=== PATIENT | male | born 1980 | race Caucasian/White ===

== ENCOUNTER 2016-10-18 14:22 | Emergency (ER) | payer SELFPAY ==
[~2016-10-18] VITALS: Ht 175.3 cm; Wt 58.1 kg
[2016-10-18 14:26] VITALS: BP 140/106
[2016-10-18] MEDS ORDERED: MULTIVITAMIN-12 10 ML, THIAMINE 100 MG, MAGNESIUM SULFATE 50% 2,000 MG, FOLIC ACID 5 MG... IV ONE ×5 (14:26)
[2016-10-18] MEDS ORDERED: NACL 0.9% 1,000 ML IV ONE (14:26)
[2016-10-18 15:07] LABS: BASOPHILS # (AUTO) 0.1 K/uL (0.00-0.22); BASOPHILS % (AUTO) 0.5 % (0.0-2.0); EOSINOPHILS # (AUTO) 0.1 K/uL (0-0.4); EOSINOPHILS % (AUTO) 0.6 % (0.0-4.0); HEMATOCRIT 46.1 % (36-52); HEMOGLOBIN 14.4 g/dL (12.0-18.0); LYMPHOCYTES # (AUTO) 0.8 K/uL (2.0-11.5); LYMPHOCYTES % (AUTO) 6.8 % (20.5-51.1); MEAN CORPUSCULAR HEMOGLOBIN 25 pg (27-31); MEAN CORPUSCULAR HGB CONC 31 g/dL (33-37); MEAN CORPUSCULAR VOLUME 82 fL (80-94); MONOCYTES # (AUTO) 0.5 K/uL (0.8-1.0); MONOCYTES % (AUTO) 4.7 % (1.7-9.3); NEUTROPHILS # (AUTO) 10.1 K/uL (1.8-7.7); NEUTROPHILS % (AUTO) 87.4 % (42.2-75.2); PLATELET COUNT (AUTO) 295 K/uL (140-450); RED BLOOD CELL COUNT(AUTO) 5.64 MIL/uL (4.20-6.10); RED CELL DISTRIBUTION WIDTH 15.8 % (11.6-13.7); WHITE BLOOD COUNT (AUTO) 11.6 K/uL (4.8-10.8)
[2016-10-18 15:25] LABS: CALCIUM 9.7 mg/dL (8.5-10.1); CARBON DIOXIDE 21.2 mmol/L (21-32); CHLORIDE 99 mmol/L (98-107); GFR ARICAN-AMERICAN 49 mL/min (>90); GFR NON ARICAN-AMERICAN 41 mL/min (>90); GLUCOSE 99 mg/dL (74-106); INR 1.2 (0.8-1.2); PARTIAL THROMBOPLASTIN TIME 25.1 secs (22-35.6); POTASSIUM 4.2 mmol/L (3.5-5.1); PROTHROMBIN TIME 11.2 secs (10.8-13.4); SODIUM SERUM 138 mmol/L (136-145); UREA NITROGEN, BLOOD 28 mg/dL (7-18)
[2016-10-18 15:31] LABS: ALANINE AMINOTRANSFERASE 14 U/L (12-78); ALBUMIN 4.6 g/dL (3.4-5.0); ALCOHOL, BLOOD < 3 mg/dL (<3); ALKALINE PHOSPHATASE 172 U/L (46-116); ASPARTATE AMINOTRANSFERASE 42 U/L (15-37); BILIRUBIN,DIRECT 0.1 mg/dL (0.0-0.3); TOTAL BILIRUBIN 0.6 mg/dL (0.0-1.0); TOTAL PROTEIN, SERUM 8.8 g/dL (6.4-8.2)
--- NOTE | 2016-10-18 15:45 | NUR ---
PT TAKEN TO BED 4.
--- NOTE | 2016-10-18 16:00 | NUR ---
35F BIBA FROM [facility] C/O METH USE X TODAY; PER [facility], PT HAS MULTIPLE WARRANTS FROM PD, AND BIBA TO GET MEDICALLY CLEARED; PT A&OX4 AT THIS TIME, PUPILS DILATED, PERRL, TACHYCARDIA NOTED ON THE MONITOR; PT DENIES ANY PAIN, N/V/D AT THIS TIME; BL LUNG SOUNDS CLEAR, RR EVEN/UNLABORED, SKIN IS WARM/DRY/INTACT AT THIS TIME; HX: HIV, ASTHMA, ANXIETY, DEPRESSION, NEUROPATHY, HIGH CHOLESTEROL; PT PLACED ON MONITOR, RESTING IN BED W/ HOB ELEVATED AND IN LOWEST POSITION; POSITIONED FOR COMFORT; ER MD MADE AWARE OF STATUS. WILL CONTINUE TO MONITOR.
--- NOTE | 2016-10-18 16:46 | NUR ---
PT STATES "FEELS ANXIOUS"; TACHYCARDIA NOTED ON THE MONITOR; RR EVEN/UNLABORED AT THIS TIME; ER MD DR. LEON NOTIFIED; WILL CONTINUE TO MONITOR.
[2016-10-18] MEDS ORDERED: LORazepam 2 MG/ML VIAL IVP ONE (16:50)
--- NOTE | 2016-10-18 17:35 | NUR ---
[place] [employer] AT BEDSIDE.
--- NOTE | 2016-10-18 17:45 | NUR ---
PER [place] [employer], PT DOES NOT MEET REQUIREMENTS FOR 5150 HOLD; ER MD DR. LEON NOTIFIED; WILL CONTINUE TO MONITOR PT.
[2016-10-18 17:58] LABS: APPEARANCE,URINE CLEAR (CLEAR); BILIRUBIN,URINE 1+ (NEGATIVE); BLOOD, URINE NEGATIVE (NEGATIVE); COLOR,URINE YELLOW (YELLOW); NITRITE, URINE NEGATIVE (NEGATIVE); PH,URINE 6.5 (5.0-9.0); PROTEIN,URINE 1+ (NEGATIVE); UGLUCOSE NEGATIVE (NEGATIVE); UROBILINOGEN,URINE 0.2 EU/dL (0.2 - 1)
[2016-10-18 18:00] LABS: AMPHETAMINE, URINE POS. ng/ml (NEG <=1000); BARBITURATE, URINE NEG. ng/ml (NEG <=200); BENZODIAZEPINE, URINE NEG. ng/mL (NEG <=200); CANNABINOID, URINE NEG. ng/mL (NEG <=50); COCAINE, URINE NEG. ng/mL (NEG <=300); OPIATE, URINE NEG. ng/mL (NEG <=2000); PHENCYCLIDINE SCREEN,URINE NEG. ng/mL (NEG <=25)
[2016-10-18 18:08] LABS: LEUKOCYTE ESTERASE ,URINE TRACE (NEGATIVE)
[2016-10-18 18:09] LABS: ICTOTEST NEGATIVE (NEGATIVE); RBC,URINE NONE SEEN /HPF (0-5)
[2016-10-18 18:10] LABS: BACTERIA,URINE 0-2 (RARE) /HPF (None Seen); SQUAMOUS EPITHELIAL CELL,UR 0-3 (FEW) /LPF (0-3 (FEW))
--- NOTE | 2016-10-18 19:00 | NUR ---
IV removed, catheter intact and site benign. Applied folded 4x4 gauze and tape to stop bleeding. PT TOLERATED PROCEDURE WELL.
[2016-10-18 19:05] VITALS: BP 112/84
--- NOTE | 2016-10-18 19:05 | NUR ---
PATIENT BIB [employer]. PATIENT EXAMINED BY DR. LEON. PATIENT MEDICALLY CLEARED AND RELEASED IN CUSTODY IN STABLE CONDITION. ORIGINAL PRE-BOOK FORM GIVEN TO OFFICER AYESHA # [id number].
== END 2016-10-18 19:09 ==
LOC: MED 14:23
DX: Z02.89 Encounter for other administrative examinations (principal); F23 Brief psychotic disorder; F15.10 Other stimulant abuse, uncomplicated
CPT/HCPCS: 36415; 71010; 80053; 80076; 80305; 81001; 85025; 85610; 85730; 87086; 93005; 96365; 96366; 96375; 99285; A9153; G0482; J2060; J3411; J3475; J3490; J7030; Q0092